=== PATIENT | male | born 1970 | race Two or more races ===

== ENCOUNTER 2020-09-24 11:20 | Inpatient (IN) | payer MEDICAID, SELFPAY ==
[~2020-09-24] VITALS: Ht 175.3 cm; Wt 76.8 kg
[2020-09-24] MEDS ORDERED: methylPREDNISolone SOD SUCC 125 MG/2 ML VL IV ONE (11:45)
[2020-09-24 12:28] LABS: Basophils # (auto) 0 10 ^3/uL (0-0.2); Eosinophils # (auto) 0 10 ^3/uL (0-0.8); Hemoglobin 17.3 g/dL (13.5-17.5); Monocytes # (auto) 1.1 10 ^3/uL (0-1.3); Red Cell Distribution Width 15.9 % (11.8-14.3); White Blood Cell 16.6 10^3/uL (4.4-10.8)
[2020-09-24 12:29] LABS: Basophils % (auto) 0.2 % (0.0-2.0); Hematocrit 55.3 % (41.0-53.0); Lymphocytes # (auto) 0.5 10 ^3/uL (0.4-5.4); Lymphocytes % (auto) 2.9 % (10.0-50.0); Mean Corpuscular Hemoglobin 30.1 pg (28.0-32.0); Mean Corpuscular Hgb Conc. 31.2 g/dL (32.0-36.0); Mean Corpuscular Volume 96.4 fL (80.0-100.0); Monocytes % (auto) 6.4 % (0.0-12.0); Neutrophils % (auto) 90.5 % (37.0-80.0); Nucleated Red Blood Cells % 0.2 %; Platelet Count (auto) 251 10^3/uL (140-450); Red Blood Cells 5.74 10^6/uL (4.5-5.90)
[2020-09-24 12:44] LABS: Albumin 3.9 g/dL (3.4-5.0); Calcium 8.9 mg/dL (8.5-10.1); Potassium 3.9 mmol/L (3.5-5.1)
[2020-09-24] MEDS ORDERED: INSULIN LANTUS (GLARGINE) 1 /0.01ml (100units/ml) SC ONE (12:45)
[2020-09-24] MEDS ORDERED: InsuLIN R (HUMAN) 100 UNITS in SODIUM CHL 0.9% 99 ML IV SCH (12:45)
[2020-09-24] MEDS ORDERED: DEXTROSE (50%) 50ML SYRG IV PRN (12:45)
[2020-09-24 12:52] LABS: BUN/Creatinine Ratio 13.7; Bilirubin, Total 0.4 mg/dL (0.2-1.0); CRP High Sensitivity 4.8 mg/dL (< 0.3); Total Protein 8.5 g/dL (6.4-8.2)
[2020-09-24] MEDS ORDERED: SODIUM BICARBONATE 8.4 % INJ 50ML VIAL IV ONE ×2 (13:00)
[2020-09-24] MEDS ORDERED: SODIUM CHLORIDE 0.9% 1,000 ML IV ONE (13:00)
[2020-09-24] MEDS ORDERED: SODIUM BICARBONATE 50ML VIAL 50 ML in SOD CHL 0.45% 1,000 ML IV ONE (13:45)
[2020-09-24] MEDS: ACCU-CHEK COMFORT CURVE STRIP VI SCH ×7 (13:57→22:35)
[2020-09-24 14:11] LABS: Lactic Acid w/Reflex 5.6 mmol/L (0.4-2.0)
[2020-09-24] MEDS ORDERED: MORPHINE SULF INJ 2 MG/ML SYRINGE 1ML IV PRN (14:15)
[2020-09-24] MEDS ORDERED: ZINC SULFATE 220mg CAP or TAB PO ONE (14:15)
[2020-09-24] MEDS ORDERED: ASCORBIC ACID 500 MG TAB PO ONE (14:15)
[2020-09-24] MEDS ORDERED: NITROGLYCERIN 0.4 MG SL TAB SL PRN (14:15)
[2020-09-24 15:24] LABS: Urine Bacteria NONE SEEN /hpf (None Seen); Urine Blood 2+ /uL (Negative); Urine Hyaline Cast FEW /lpf (0 - 2); Urine Specific Gravity 1.024 (1.001-1.035); Urine WBC 2 /hpf (0 - 3)
[2020-09-24 16:05] LABS: Magnesium 2.8 mg/dL (1.6-2.6); Phosphorus 4.5 mg/dL (2.5-4.90)
[2020-09-24] MEDS: InsuLIN R (HUMAN) 100 UNITS in SODIUM CHL 0.9% 99 ML IV SCH ×4 (17:14→20:08)
[2020-09-24 21:44] LABS: Calcium 7.5 mg/dL (8.5-10.1); Potassium 3.7 mmol/L (3.5-5.1)
[2020-09-24 21:46] LABS: BUN/Creatinine Ratio 15.3
[2020-09-24] MEDS: BUDESONIDE (INHALATION) 180 MCG IH IN SCH (22:00)
[2020-09-24] MEDS: DOXYCYCLINE 100MG/250ML 250 ML IV SCH (22:30)
[2020-09-24] MEDS: ENOXAPARIN SOD 40 MG/0.4 ML SYRINGE SC SCH (22:30)
[2020-09-24] MEDS: ALBUTEROL SULF HFA 90MCG INH 200DOSE IN PRN (23:19)
[2020-09-25] MEDS: ACCU-CHEK COMFORT CURVE STRIP VI SCH ×9 (00:10→20:00)
[2020-09-25] MEDS ORDERED: SODIUM BICARBONATE 50ML VIAL 100 ML in SOD CHL 0.45% 1,000 ML IV ONE (00:45)
[2020-09-25] MEDS ORDERED: SODIUM BICARBONATE 8.4 % INJ 50ML VIAL IV ONE (00:45)
[2020-09-25] MEDS ORDERED: SODIUM BICARBONATE 8.4% INJ 50ML SYRINGE ONE (00:55)
[2020-09-25] MEDS: D5W 5% 1,000 ML IV SCH (01:00)
[2020-09-25 06:45] LABS: Basophils # (auto) 0 10 ^3/uL (0-0.2); Basophils % (auto) 0.1 % (0.0-2.0); Eosinophils # (auto) 0 10 ^3/uL (0-0.8); Hematocrit 45.8 % (41.0-53.0); Hemoglobin 15.3 g/dL (13.5-17.5); Lymphocytes # (auto) 0.3 10 ^3/uL (0.4-5.4); Lymphocytes % (auto) 3.2 % (10.0-50.0); Mean Corpuscular Hemoglobin 29.9 pg (28.0-32.0); Mean Corpuscular Hgb Conc. 33.4 g/dL (32.0-36.0); Mean Corpuscular Volume 89.7 fL (80.0-100.0); Monocytes # (auto) 0.7 10 ^3/uL (0-1.3); Monocytes % (auto) 7.2 % (0.0-12.0); Neutrophils # (auto) 8.8 10 ^3/uL (1.6-8.6); Neutrophils % (auto) 89.5 % (37.0-80.0); Nucleated Red Blood Cells % 0.9 %; Platelet Count (auto) 161 10^3/uL (140-450); Red Cell Distribution Width 15.1 % (11.8-14.3); White Blood Cell 9.9 10^3/uL (4.4-10.8)
[2020-09-25] MEDS: ALBUTEROL SULF HFA 90MCG INH 200DOSE IN PRN (06:47)
[2020-09-25] MEDS: BUDESONIDE (INHALATION) 180 MCG IH IN SCH ×2 (06:47→22:00)
[2020-09-25 07:05] LABS: Calcium 8.4 mg/dL (8.5-10.1); Magnesium 2.5 mg/dL (1.6-2.6)
[2020-09-25 07:11] LABS: Bilirubin, Total 0.3 mg/dL (0.2-1.0); Total Protein 6.5 g/dL (6.4-8.2)
[2020-09-25 07:16] LABS: Potassium 2.9 mmol/L (3.5-5.1)
[2020-09-25 07:17] LABS: Phosphorus 0.5 mg/dL (2.5-4.90)
[2020-09-25] MEDS ORDERED: SOD CHL 0.45% 1,000 ML IV SCH (08:45)
[2020-09-25] MEDS ORDERED: DEXTROSE (50%) 50ML SYRG IV PRN (08:45)
[2020-09-25] MEDS ORDERED: POTASSIUM EFFERVESENT TAB 25 MEQ PO ONE ×2 (08:45→19:00)
[2020-09-25] MEDS: cefTRIAXone 1GM/50ML D5W 50 ML IV SCH (09:29)
[2020-09-25] MEDS: DOXYCYCLINE 100MG/250ML 250 ML IV SCH ×2 (09:29→22:00)
[2020-09-25] MEDS: ZINC SULFATE 220mg CAP or TAB PO SCH (09:30)
[2020-09-25] MEDS: ENOXAPARIN SOD 40 MG/0.4 ML SYRINGE SC SCH ×2 (09:31→21:31)
[2020-09-25] MEDS: INSULIN LANTUS (GLARGINE) 1 /0.01ml (100units/ml) SC SCH (09:57)
[2020-09-25] MEDS ORDERED: POTASSIUM PHOSPHATE 22 MEQ in SODIUM CHL 0.9% 100 ML IV ONE (11:15)
[2020-09-25] MEDS: InsuLIN REG 1unit/0.01ml Soln (100units/ml) SC SCH ×3 (12:21→21:30)
[2020-09-25 15:18] LABS: BUN/Creatinine Ratio 15.7
[2020-09-25 15:54] LABS: Calcium 5.7 mg/dL (8.5-10.1); Potassium 2.8 mmol/L (3.5-5.1)
[2020-09-25] MEDS ORDERED: CALCIUM GLUC 4.65meq/50ml D5AE 50 ML IV ONE (19:00)
[2020-09-25] MEDS: ACETAMINOPHEN 500 MG TAB PO PRN ×2 (20:20→21:36)
[2020-09-26] MEDS: InsuLIN REG 1unit/0.01ml Soln (100units/ml) SC SCH ×7 (04:00→23:56)
[2020-09-26] MEDS: ACCU-CHEK COMFORT CURVE STRIP VI SCH ×7 (04:00→23:56)
[2020-09-26] MEDS: D5W 5% 1,000 ML IV SCH ×2 (05:00→18:38)
[2020-09-26 05:53] LABS: Basophils # (auto) 0 10 ^3/uL (0-0.2); Basophils % (auto) 0.2 % (0.0-2.0); Eosinophils # (auto) 0 10 ^3/uL (0-0.8); Hematocrit 43.3 % (41.0-53.0); Hemoglobin 14.7 g/dL (13.5-17.5); Lymphocytes # (auto) 0.4 10 ^3/uL (0.4-5.4); Lymphocytes % (auto) 4.9 % (10.0-50.0); Mean Corpuscular Hemoglobin 29.9 pg (28.0-32.0); Mean Corpuscular Hgb Conc. 33.9 g/dL (32.0-36.0); Mean Corpuscular Volume 88.2 fL (80.0-100.0); Monocytes # (auto) 0.4 10 ^3/uL (0-1.3); Monocytes % (auto) 5.3 % (0.0-12.0); Neutrophils # (auto) 7.5 10 ^3/uL (1.6-8.6); Neutrophils % (auto) 89.6 % (37.0-80.0); Platelet Count (auto) 131 10^3/uL (140-450); Red Cell Distribution Width 15.1 % (11.8-14.3); White Blood Cell 8.3 10^3/uL (4.4-10.8)
[2020-09-26 06:30] LABS: Albumin 2.6 g/dL (3.4-5.0); BUN/Creatinine Ratio 12.8; Bilirubin, Total 0.5 mg/dL (0.2-1.0); CRP High Sensitivity 9.15 mg/dL (< 0.3); Calcium 8.5 mg/dL (8.5-10.1); Total Protein 6.3 g/dL (6.4-8.2)
[2020-09-26 06:37] LABS: Potassium 2.7 mmol/L (3.5-5.1)
[2020-09-26] MEDS: BUDESONIDE (INHALATION) 180 MCG IH IN SCH ×2 (06:45→20:01)
[2020-09-26] MEDS: ALBUTEROL SULF HFA 90MCG INH 200DOSE IN PRN ×2 (06:47→20:01)
[2020-09-26] MEDS ORDERED: POTASSIUM CHLORIDE 60 MEQ, LIDOCAINE 1% (LOCAL ANESTH.) 6 ML in SODIUM CHL 0.9% 500 ML IV ONE (08:45)
[2020-09-26] MEDS: cefTRIAXone 1GM/50ML D5W 50 ML IV SCH (08:58)
[2020-09-26] MEDS: ACETAMINOPHEN 500 MG TAB PO PRN (09:20)
[2020-09-26] MEDS: ZINC SULFATE 220mg CAP or TAB PO SCH (10:00)
[2020-09-26] MEDS: INSULIN LANTUS (GLARGINE) 1 /0.01ml (100units/ml) SC SCH (10:20)
[2020-09-26] MEDS: ASCORBIC ACID 1,000 MG TAB PO SCH (10:55)
[2020-09-26] MEDS: DOXYCYCLINE 100MG/250ML 250 ML IV SCH ×2 (10:55→22:24)
[2020-09-26] MEDS: DexAMETHasone SOD PHOS 10MG/1ML VIAL INJ IV SCH (10:55)
[2020-09-26] MEDS: CHOLECALCIFEROL (VITD3) 2,000 UNIT CAP/TAB PO SCH (10:56)
[2020-09-26] MEDS: ENOXAPARIN SOD 40 MG/0.4 ML SYRINGE SC SCH ×2 (10:56→22:25)
[2020-09-26 22:00] VITALS: BP 122/84
[2020-09-27] MEDS: D5W 5% 1,000 ML IV SCH ×3 (01:00→21:00)
[2020-09-27] MEDS: ACCU-CHEK COMFORT CURVE STRIP VI SCH ×5 (03:24→20:24)
[2020-09-27] MEDS: InsuLIN REG 1unit/0.01ml Soln (100units/ml) SC SCH ×5 (03:24→20:30)
[2020-09-27 05:00] VITALS: BP 121/75
[2020-09-27 08:00] VITALS: BP 115/78
[2020-09-27 09:00] VITALS: BP 115/78
[2020-09-27] MEDS: cefTRIAXone 1GM/50ML D5W 50 ML IV SCH (09:25)
[2020-09-27] MEDS: DexAMETHasone SOD PHOS 10MG/1ML VIAL INJ IV SCH (09:26)
[2020-09-27] MEDS: DOXYCYCLINE 100MG/250ML 250 ML IV SCH ×2 (09:26→21:59)
[2020-09-27] MEDS: ZINC SULFATE 220mg CAP or TAB PO SCH (09:27)
[2020-09-27] MEDS: ASCORBIC ACID 1,000 MG TAB PO SCH (09:27)
[2020-09-27] MEDS: INSULIN LANTUS (GLARGINE) 1 /0.01ml (100units/ml) SC SCH (09:28)
[2020-09-27] MEDS: CHOLECALCIFEROL (VITD3) 2,000 UNIT CAP/TAB PO SCH (09:28)
[2020-09-27] MEDS: ENOXAPARIN SOD 40 MG/0.4 ML SYRINGE SC SCH ×2 (09:29→21:59)
[2020-09-27] MEDS: BUDESONIDE (INHALATION) 180 MCG IH IN SCH (09:38)
[2020-09-27] MEDS: ALBUTEROL SULF HFA 90MCG INH 200DOSE IN PRN (09:38)
[2020-09-27 13:00] VITALS: BP 110/73
[2020-09-27 16:40] VITALS: BP 120/76
[2020-09-27 20:17] VITALS: BP 136/72
[2020-09-28] MEDS: ACCU-CHEK COMFORT CURVE STRIP VI SCH ×6 (00:18→20:28)
[2020-09-28] MEDS: InsuLIN REG 1unit/0.01ml Soln (100units/ml) SC SCH ×6 (00:20→20:29)
[2020-09-28] MEDS: cefTRIAXone 1GM/50ML D5W 50 ML IV SCH (08:51)
[2020-09-28] MEDS: D5W 5% 1,000 ML IV SCH ×2 (09:19→17:05)
[2020-09-28] MEDS: DexAMETHasone SOD PHOS 10MG/1ML VIAL INJ IV SCH (09:30)
[2020-09-28] MEDS: DOXYCYCLINE 100MG/250ML 250 ML IV SCH ×2 (09:32→20:40)
[2020-09-28] MEDS: ZINC SULFATE 220mg CAP or TAB PO SCH (09:33)
[2020-09-28] MEDS: CHOLECALCIFEROL (VITD3) 2,000 UNIT CAP/TAB PO SCH (09:33)
[2020-09-28] MEDS: ASCORBIC ACID 1,000 MG TAB PO SCH (09:33)
[2020-09-28] MEDS: ENOXAPARIN SOD 40 MG/0.4 ML SYRINGE SC SCH ×2 (09:35→21:53)
[2020-09-28] MEDS: INSULIN LANTUS (GLARGINE) 1 /0.01ml (100units/ml) SC SCH (09:35)
[2020-09-28] MEDS: BUDESONIDE (INHALATION) 180 MCG IH IN SCH ×2 (10:00→20:00)
[2020-09-28 11:42] LABS: Albumin 2.5 g/dL (3.4-5.0); Calcium 8.3 mg/dL (8.5-10.1); Magnesium 2.2 mg/dL (1.6-2.6)
[2020-09-28 11:46] LABS: BUN/Creatinine Ratio 22.8; Bilirubin, Total 0.5 mg/dL (0.2-1.0); Phosphorus 2.4 mg/dL (2.5-4.90); Total Protein 6.2 g/dL (6.4-8.2)
[2020-09-28 11:57] LABS: Potassium 2.8 mmol/L (3.5-5.1)
[2020-09-28] MEDS ORDERED: POTASSIUM CHL 20 Meq TABLET PO ONE (12:15)
[2020-09-28 20:00] VITALS: BP 89/52
[2020-09-28] MEDS ORDERED: SODIUM PHOSPHATES 20 MEQ in SODIUM CHL 0.9% 100 ML IV ONE (21:00)
[2020-09-28 22:00] VITALS: BP 89/52
[2020-09-29] VITALS (11 sets, daily range): BP systolic 78–93; BP diastolic 50–65
[2020-09-29] MEDS: ERGOCALCIFEROL 50,000 UNIT(1.25MG) CAP PO SCH (00:45)
[2020-09-29] MEDS: ACCU-CHEK COMFORT CURVE STRIP VI SCH ×6 (01:27→20:20)
[2020-09-29] MEDS: InsuLIN REG 1unit/0.01ml Soln (100units/ml) SC SCH ×6 (01:32→20:21)
[2020-09-29] MEDS: D5W 5% 1,000 ML IV SCH (03:02)
[2020-09-29] MEDS: cefTRIAXone 1GM/50ML D5W 50 ML IV SCH (08:26)
[2020-09-29] MEDS: DOXYCYCLINE 100MG/250ML 250 ML IV SCH (09:31)
[2020-09-29] MEDS: ASCORBIC ACID 1,000 MG TAB PO SCH (09:32)
[2020-09-29] MEDS: ZINC SULFATE 220mg CAP or TAB PO SCH (09:32)
[2020-09-29] MEDS: CHOLECALCIFEROL (VITD3) 2,000 UNIT CAP/TAB PO SCH (09:32)
[2020-09-29] MEDS: INSULIN LANTUS (GLARGINE) 1 /0.01ml (100units/ml) SC SCH (09:33)
[2020-09-29] MEDS: ENOXAPARIN SOD 40 MG/0.4 ML SYRINGE SC SCH ×2 (09:34→21:33)
[2020-09-29] MEDS: BUDESONIDE (INHALATION) 180 MCG IH IN SCH ×2 (10:00→21:33)
[2020-09-29 10:08] LABS: Potassium 3.1 mmol/L (3.5-5.1)
[2020-09-29 10:21] LABS: Calcium 8.3 mg/dL (8.5-10.1)
[2020-09-29] MEDS ORDERED: POTASSIUM CHL 20 Meq TABLET PO ONE (11:30)
[2020-09-29] MEDS ORDERED: SODIUM CHLORIDE 0.9% 1,000 ML IV ONE (12:45)
[2020-09-29] MEDS: SODIUM CHLORIDE 0.9% 1,000 ML IV SCH (13:04)
[2020-09-29] MEDS: FOLIC ACID 1 MG, MULTIPLE VITAMIN 10 ML, MAGNESIUM SULF SDV 50% 8 MEQ, THIAMINE INJ 100... INJ SCH ×5 (18:20)
[2020-09-29] MEDS: ALBUTEROL SULF HFA 90MCG INH 200DOSE IN PRN (21:33)
[2020-09-30] VITALS (7 sets, daily range): BP systolic 83–94; BP diastolic 50–62
[2020-09-30] MEDS: ACCU-CHEK COMFORT CURVE STRIP VI SCH ×6 (00:03→19:56)
[2020-09-30] MEDS: SODIUM CHLORIDE 0.9% 1,000 ML IV SCH ×2 (01:28→15:25)
[2020-09-30] MEDS: InsuLIN REG 1unit/0.01ml Soln (100units/ml) SC SCH ×6 (04:00→20:06)
[2020-09-30] MEDS: cefTRIAXone 1GM/50ML D5W 50 ML IV SCH (08:24)
[2020-09-30] MEDS: ZINC SULFATE 220mg CAP or TAB PO SCH (09:56)
[2020-09-30] MEDS: CHOLECALCIFEROL (VITD3) 2,000 UNIT CAP/TAB PO SCH (09:57)
[2020-09-30] MEDS: ASCORBIC ACID 1,000 MG TAB PO SCH (09:57)
[2020-09-30] MEDS: INSULIN LANTUS (GLARGINE) 1 /0.01ml (100units/ml) SC SCH (09:59)
[2020-09-30] MEDS: ENOXAPARIN SOD 40 MG/0.4 ML SYRINGE SC SCH ×2 (09:59→21:20)
[2020-09-30] MEDS: FOLIC ACID 1 MG, MULTIPLE VITAMIN 10 ML, MAGNESIUM SULF SDV 50% 8 MEQ, THIAMINE INJ 100... INJ SCH ×5 (12:38)
[2020-09-30] MEDS: BUDESONIDE (INHALATION) 180 MCG IH IN SCH ×2 (14:32→20:25)
[2020-09-30 18:24] LABS: Albumin 2.1 g/dL (3.4-5.0); Calcium 7.7 mg/dL (8.5-10.1); Magnesium 2.4 mg/dL (1.6-2.6)
[2020-09-30 18:29] LABS: BUN/Creatinine Ratio 21.9; Bilirubin, Total 0.3 mg/dL (0.2-1.0); Phosphorus 3.4 mg/dL (2.5-4.90); Potassium 3.3 mmol/L (3.5-5.1); Total Protein 5.2 g/dL (6.4-8.2)
[2020-09-30] MEDS: ALBUTEROL SULF HFA 90MCG INH 200DOSE IN PRN (20:26)
[2020-10-01] MEDS: ACCU-CHEK COMFORT CURVE STRIP VI SCH ×6 (00:15→20:03)
[2020-10-01] MEDS: InsuLIN REG 1unit/0.01ml Soln (100units/ml) SC SCH ×6 (04:00→20:03)
[2020-10-01] MEDS: ACETAMINOPHEN 500 MG TAB PO PRN (04:15)
[2020-10-01] MEDS: SODIUM CHLORIDE 0.9% 1,000 ML IV SCH (04:15)
[2020-10-01 05:00] VITALS: BP 84/51
[2020-10-01 07:36] LABS: Calcium 7.8 mg/dL (8.5-10.1); Magnesium 2.4 mg/dL (1.6-2.6); Phosphorus 3.2 mg/dL (2.5-4.90); Potassium 3.3 mmol/L (3.5-5.1)
[2020-10-01 08:00] VITALS: BP 79/42
[2020-10-01] MEDS: cefTRIAXone 1GM/50ML D5W 50 ML IV SCH (08:26)
[2020-10-01] MEDS ORDERED: POTASSIUM CHL 20 Meq TABLET PO ONE (09:00)
[2020-10-01] MEDS: BUDESONIDE (INHALATION) 180 MCG IH IN SCH ×2 (10:00→22:00)
[2020-10-01] MEDS: CHOLECALCIFEROL (VITD3) 2,000 UNIT CAP/TAB PO SCH (10:00)
[2020-10-01] MEDS: INSULIN LANTUS (GLARGINE) 1 /0.01ml (100units/ml) SC SCH (10:00)
[2020-10-01] MEDS: ASCORBIC ACID 1,000 MG TAB PO SCH (10:00)
[2020-10-01] MEDS: ZINC SULFATE 220mg CAP or TAB PO SCH (10:00)
[2020-10-01] MEDS: ENOXAPARIN SOD 40 MG/0.4 ML SYRINGE SC SCH ×2 (10:00→22:10)
[2020-10-01] MEDS: FOLIC ACID 1 MG, MULTIPLE VITAMIN 10 ML, MAGNESIUM SULF SDV 50% 8 MEQ, THIAMINE INJ 100... INJ SCH ×5 (12:00)
[2020-10-01 12:06] LABS: Folate (Folic Acid) 5.84 ng/mL (5.38-24)
[2020-10-01] MEDS ORDERED: AZITHROMYCIN 250 MG TAB PO ONE (21:15)
[2020-10-01] MEDS ORDERED: REMDESIVIR PER PHARMACY 0 ML IV SCH (21:15)
[2020-10-01] MEDS ORDERED: CYANOCOBALAMIN (B-12) 1000 MCG/1 ML VIAL IM ONE (21:30)
[2020-10-01 21:37] VITALS: BP 93/63
[2020-10-01] MEDS ORDERED: DexAMETHasone 4 MG TAB PO SCH (22:00)
[2020-10-01] MEDS ORDERED: REMDESIVIR 200 MG in NS 210ml LOADING DOSE ADULT IV ONE (22:00)
[2020-10-01] MEDS: FAMOTIDINE 20 MG TAB PO SCH (22:10)
[2020-10-01] MEDS: ALBUTEROL SULF HFA 90MCG INH 200DOSE IN PRN (23:38)
[2020-10-02] VITALS (7 sets, daily range): BP systolic 90–105; BP diastolic 53–63
[2020-10-02] MEDS: ACCU-CHEK COMFORT CURVE STRIP VI SCH ×6 (00:12→20:13)
[2020-10-02] MEDS: InsuLIN REG 1unit/0.01ml Soln (100units/ml) SC SCH ×6 (00:15→20:54)
[2020-10-02] MEDS: cefTRIAXone 1GM/50ML D5W 50 ML IV SCH (08:15)
[2020-10-02 08:56] LABS: Basophils # (auto) 0 10 ^3/uL (0-0.2); Basophils % (auto) 0.2 % (0.0-2.0); Eosinophils # (auto) 0.1 10 ^3/uL (0-0.8); Eosinophils % (auto) 1.9 % (0.0-7.0); Hematocrit 37.2 % (41.0-53.0); Hemoglobin 12.6 g/dL (13.5-17.5); Lymphocytes % (auto) 13.6 % (10.0-50.0); Mean Corpuscular Hemoglobin 29.8 pg (28.0-32.0); Mean Corpuscular Hgb Conc. 33.8 g/dL (32.0-36.0); Mean Corpuscular Volume 88.2 fL (80.0-100.0); Monocytes # (auto) 0.8 10 ^3/uL (0-1.3); Monocytes % (auto) 10.3 % (0.0-12.0); Neutrophils # (auto) 5.6 10 ^3/uL (1.6-8.6); Nucleated Red Blood Cells % 0.1 %; Platelet Count (auto) 194 10^3/uL (140-450); Red Blood Cells 4.22 10^6/uL (4.5-5.90); Red Cell Distribution Width 13.9 % (11.8-14.3); White Blood Cell 7.6 10^3/uL (4.4-10.8)
[2020-10-02 09:29] LABS: Potassium 3.6 mmol/L (3.5-5.1)
[2020-10-02 09:44] LABS: BUN/Creatinine Ratio 11.3; Bilirubin, Total 0.3 mg/dL (0.2-1.0); CRP High Sensitivity 4.19 mg/dL (< 0.3); Calcium 7.9 mg/dL (8.5-10.1); Magnesium 2.3 mg/dL (1.6-2.6); Phosphorus 2.9 mg/dL (2.5-4.90); Total Protein 5.4 g/dL (6.4-8.2)
[2020-10-02] MEDS: BUDESONIDE (INHALATION) 180 MCG IH IN SCH ×2 (10:00→20:59)
[2020-10-02] MEDS: THIAMINE HCL 100 MG TAB PO SCH (10:07)
[2020-10-02] MEDS: ZINC SULFATE 220mg CAP or TAB PO SCH (10:10)
[2020-10-02] MEDS: DexAMETHasone 4 MG TAB PO SCH (10:17)
[2020-10-02] MEDS: CHOLECALCIFEROL (VITD3) 2,000 UNIT CAP/TAB PO SCH (10:25)
[2020-10-02] MEDS: ASCORBIC ACID 1,000 MG TAB PO SCH (10:25)
[2020-10-02] MEDS: INSULIN LANTUS (GLARGINE) 1 /0.01ml (100units/ml) SC SCH (10:27)
[2020-10-02] MEDS: ENOXAPARIN SOD 40 MG/0.4 ML SYRINGE SC SCH ×2 (10:28→20:55)
[2020-10-02] MEDS: ALBUTEROL SULF HFA 90MCG INH 200DOSE IN PRN ×2 (11:21→20:59)
[2020-10-02] MEDS: FOLIC ACID 1 MG, MULTIPLE VITAMIN 10 ML, MAGNESIUM SULF SDV 50% 8 MEQ, THIAMINE INJ 100... INJ SCH ×5 (12:15)
[2020-10-02] MEDS ORDERED: POTASSIUM CHL 20 Meq TABLET PO ONE (13:30)
[2020-10-02] MEDS: AZITHROMYCIN 250 MG TAB PO SCH (20:14)
[2020-10-02] MEDS: REMDESIVIR 100 MG in SODIUM CHL 0.9% 250 ML IV SCH (20:14)
[2020-10-02] MEDS: FAMOTIDINE 20 MG TAB PO SCH (20:55)
[2020-10-03] MEDS: ACCU-CHEK COMFORT CURVE STRIP VI SCH ×6 (00:44→20:13)
[2020-10-03] MEDS: InsuLIN REG 1unit/0.01ml Soln (100units/ml) SC SCH ×6 (00:47→20:13)
[2020-10-03 05:00] VITALS: BP 94/61
[2020-10-03] MEDS: BUDESONIDE (INHALATION) 180 MCG IH IN SCH ×2 (07:19→21:52)
[2020-10-03] MEDS: ALBUTEROL SULF HFA 90MCG INH 200DOSE IN PRN ×2 (07:19→21:52)
[2020-10-03 08:00] VITALS: BP 108/57
[2020-10-03] MEDS: cefTRIAXone 1GM/50ML D5W 50 ML IV SCH (08:41)
[2020-10-03 09:00] VITALS: BP 86/50
[2020-10-03] MEDS: ZINC SULFATE 220mg CAP or TAB PO SCH (09:47)
[2020-10-03] MEDS: DexAMETHasone 4 MG TAB PO SCH (09:47)
[2020-10-03] MEDS: ASCORBIC ACID 1,000 MG TAB PO SCH (09:47)
[2020-10-03] MEDS: THIAMINE HCL 100 MG TAB PO SCH (09:47)
[2020-10-03] MEDS: CHOLECALCIFEROL (VITD3) 2,000 UNIT CAP/TAB PO SCH (09:48)
[2020-10-03] MEDS: ENOXAPARIN SOD 40 MG/0.4 ML SYRINGE SC SCH ×2 (09:50→21:43)
[2020-10-03] MEDS: INSULIN LANTUS (GLARGINE) 1 /0.01ml (100units/ml) SC SCH (09:50)
[2020-10-03] MEDS: FOLIC ACID 1 MG, MULTIPLE VITAMIN 10 ML, MAGNESIUM SULF SDV 50% 8 MEQ, THIAMINE INJ 100... INJ SCH ×5 (12:06)
[2020-10-03 13:00] VITALS: BP 97/61
[2020-10-03 17:00] VITALS: BP 105/73
[2020-10-03] MEDS: REMDESIVIR 100 MG in SODIUM CHL 0.9% 250 ML IV SCH (20:05)
[2020-10-03] MEDS: AZITHROMYCIN 250 MG TAB PO SCH (20:12)
[2020-10-03 21:00] VITALS: BP 91/56
[2020-10-03] MEDS: FAMOTIDINE 20 MG TAB PO SCH (21:42)
[2020-10-04] MEDS: ACCU-CHEK COMFORT CURVE STRIP VI SCH ×6 (04:06→20:09)
[2020-10-04] MEDS: InsuLIN REG 1unit/0.01ml Soln (100units/ml) SC SCH ×6 (04:07→20:16)
[2020-10-04 05:00] VITALS: BP 90/59
[2020-10-04 06:17] LABS: Potassium 3.4 mmol/L (3.5-5.1)
[2020-10-04 06:39] LABS: Albumin 2.1 g/dL (3.4-5.0); BUN/Creatinine Ratio 16.2; Bilirubin, Total 0.2 mg/dL (0.2-1.0); Calcium 8.1 mg/dL (8.5-10.1); Total Protein 5.3 g/dL (6.4-8.2)
[2020-10-04] MEDS: ALBUTEROL SULF HFA 90MCG INH 200DOSE IN PRN ×2 (07:36→21:54)
[2020-10-04] MEDS: BUDESONIDE (INHALATION) 180 MCG IH IN SCH ×2 (07:36→21:54)
[2020-10-04 09:00] VITALS: BP 90/51
[2020-10-04] MEDS: ZINC SULFATE 220mg CAP or TAB PO SCH (09:08)
[2020-10-04] MEDS: CHOLECALCIFEROL (VITD3) 2,000 UNIT CAP/TAB PO SCH (09:08)
[2020-10-04] MEDS: THIAMINE HCL 100 MG TAB PO SCH (09:08)
[2020-10-04] MEDS: cefTRIAXone 1GM/50ML D5W 50 ML IV SCH (09:08)
[2020-10-04] MEDS: DexAMETHasone 4 MG TAB PO SCH (09:08)
[2020-10-04] MEDS: ASCORBIC ACID 1,000 MG TAB PO SCH (09:09)
[2020-10-04] MEDS: ENOXAPARIN SOD 40 MG/0.4 ML SYRINGE SC SCH ×2 (09:09→22:03)
[2020-10-04] MEDS: INSULIN LANTUS (GLARGINE) 1 /0.01ml (100units/ml) SC SCH (11:37)
[2020-10-04 13:00] VITALS: BP 88/51
[2020-10-04] MEDS: FOLIC ACID 1 MG, MULTIPLE VITAMIN 10 ML, MAGNESIUM SULF SDV 50% 8 MEQ, THIAMINE INJ 100... INJ SCH ×5 (14:56)
[2020-10-04 16:36] VITALS: BP 90/60
[2020-10-04 20:00] VITALS: BP 89/56
[2020-10-04] MEDS: REMDESIVIR 100 MG in SODIUM CHL 0.9% 250 ML IV SCH (20:05)
[2020-10-04] MEDS: AZITHROMYCIN 250 MG TAB PO SCH (20:09)
[2020-10-04 22:00] VITALS: BP 89/50
[2020-10-04] MEDS ORDERED: POTASSIUM CHL 20 Meq TABLET PO ONE (22:00)
[2020-10-04] MEDS: FAMOTIDINE 20 MG TAB PO SCH (22:03)
[2020-10-05] MEDS: ACCU-CHEK COMFORT CURVE STRIP VI SCH ×6 (00:07→19:43)
[2020-10-05] MEDS: InsuLIN REG 1unit/0.01ml Soln (100units/ml) SC SCH ×6 (00:15→19:46)
[2020-10-05 05:00] VITALS: BP 88/58
[2020-10-05] MEDS: BUDESONIDE (INHALATION) 180 MCG IH IN SCH ×2 (07:07→19:50)
[2020-10-05] MEDS: ALBUTEROL SULF HFA 90MCG INH 200DOSE IN PRN (07:07)
[2020-10-05 07:27] LABS: Potassium 3.8 mmol/L (3.5-5.1)
[2020-10-05 07:38] LABS: Albumin 2.1 g/dL (3.4-5.0); BUN/Creatinine Ratio 18.7; Bilirubin, Total 0.3 mg/dL (0.2-1.0); Calcium 8.1 mg/dL (8.5-10.1); Total Protein 5.6 g/dL (6.4-8.2)
[2020-10-05 09:00] VITALS: BP 97/67
[2020-10-05] MEDS: THIAMINE HCL 100 MG TAB PO SCH (10:58)
[2020-10-05] MEDS: ASCORBIC ACID 1,000 MG TAB PO SCH (10:58)
[2020-10-05] MEDS: ZINC SULFATE 220mg CAP or TAB PO SCH (10:58)
[2020-10-05] MEDS: DexAMETHasone 4 MG TAB PO SCH (10:59)
[2020-10-05] MEDS: CHOLECALCIFEROL (VITD3) 2,000 UNIT CAP/TAB PO SCH (10:59)
[2020-10-05] MEDS: ENOXAPARIN SOD 40 MG/0.4 ML SYRINGE SC SCH ×2 (11:00→22:08)
[2020-10-05] MEDS: INSULIN LANTUS (GLARGINE) 1 /0.01ml (100units/ml) SC SCH (11:00)
[2020-10-05] MEDS: FOLIC ACID 1 MG, MULTIPLE VITAMIN 10 ML, MAGNESIUM SULF SDV 50% 8 MEQ, THIAMINE INJ 100... INJ SCH ×5 (12:00)
[2020-10-05 13:00] VITALS: BP 99/60
[2020-10-05 16:54] VITALS: BP 94/52
[2020-10-05] MEDS: AZITHROMYCIN 250 MG TAB PO SCH (19:43)
[2020-10-05] MEDS: REMDESIVIR 100 MG in SODIUM CHL 0.9% 250 ML IV SCH (19:44)
[2020-10-05 20:00] VITALS: BP 94/60
[2020-10-05] MEDS: ERGOCALCIFEROL 50,000 UNIT(1.25MG) CAP PO SCH (21:00)
[2020-10-05 22:00] VITALS: BP 100/55
[2020-10-05] MEDS: FAMOTIDINE 20 MG TAB PO SCH (22:08)
[2020-10-06] MEDS: ACCU-CHEK COMFORT CURVE STRIP VI SCH ×7 (00:05→23:44)
[2020-10-06] MEDS: InsuLIN REG 1unit/0.01ml Soln (100units/ml) SC SCH ×7 (00:10→23:46)
[2020-10-06] MEDS: ALBUTEROL SULF HFA 90MCG INH 200DOSE IN PRN ×3 (00:59→21:12)
[2020-10-06 05:00] VITALS: BP 96/57
[2020-10-06] MEDS: ACETAMINOPHEN 500 MG TAB PO PRN ×2 (05:51→11:04)
[2020-10-06] MEDS: BUDESONIDE (INHALATION) 180 MCG IH IN SCH ×2 (07:28→21:12)
[2020-10-06 09:00] VITALS: BP 86/49
[2020-10-06] MEDS: ZINC SULFATE 220mg CAP or TAB PO SCH (11:02)
[2020-10-06] MEDS: DexAMETHasone 4 MG TAB PO SCH (11:03)
[2020-10-06] MEDS: THIAMINE HCL 100 MG TAB PO SCH (11:03)
[2020-10-06] MEDS: CHOLECALCIFEROL (VITD3) 2,000 UNIT CAP/TAB PO SCH (11:03)
[2020-10-06] MEDS: ASCORBIC ACID 1,000 MG TAB PO SCH (11:03)
[2020-10-06] MEDS: ENOXAPARIN SOD 40 MG/0.4 ML SYRINGE SC SCH ×2 (11:04→22:25)
[2020-10-06] MEDS: INSULIN LANTUS (GLARGINE) 1 /0.01ml (100units/ml) SC SCH (11:46)
[2020-10-06 12:37] VITALS: BP 88/53
[2020-10-06] MEDS: FOLIC ACID 1 MG, MULTIPLE VITAMIN 10 ML, MAGNESIUM SULF SDV 50% 8 MEQ, THIAMINE INJ 100... INJ SCH ×5 (13:15)
[2020-10-06 17:00] VITALS: BP 90/62
[2020-10-06] MEDS: FAMOTIDINE 20 MG TAB PO SCH (22:24)
[2020-10-06 23:38] VITALS: BP 111/73
[2020-10-07] MEDS: ACCU-CHEK COMFORT CURVE STRIP VI SCH ×6 (04:21→23:31)
[2020-10-07] MEDS: InsuLIN REG 1unit/0.01ml Soln (100units/ml) SC SCH ×6 (04:23→23:30)
[2020-10-07 05:39] VITALS: BP 95/56
[2020-10-07 08:18] VITALS: BP 99/59
[2020-10-07] MEDS: BUDESONIDE (INHALATION) 180 MCG IH IN SCH ×2 (08:49→21:20)
[2020-10-07] MEDS: ALBUTEROL SULF HFA 90MCG INH 200DOSE IN PRN ×2 (08:49→21:20)
[2020-10-07] MEDS: THIAMINE HCL 100 MG TAB PO SCH (08:52)
[2020-10-07] MEDS: CHOLECALCIFEROL (VITD3) 2,000 UNIT CAP/TAB PO SCH (08:52)
[2020-10-07] MEDS: DexAMETHasone 4 MG TAB PO SCH (08:52)
[2020-10-07] MEDS: ZINC SULFATE 220mg CAP or TAB PO SCH (08:52)
[2020-10-07] MEDS: ASCORBIC ACID 1,000 MG TAB PO SCH (08:52)
[2020-10-07] MEDS: ENOXAPARIN SOD 40 MG/0.4 ML SYRINGE SC SCH ×2 (08:53→22:01)
[2020-10-07] MEDS: INSULIN LANTUS (GLARGINE) 1 /0.01ml (100units/ml) SC SCH (08:55)
[2020-10-07 13:04] VITALS: BP 103/60
[2020-10-07] MEDS: FOLIC ACID 1 MG, MULTIPLE VITAMIN 10 ML, MAGNESIUM SULF SDV 50% 8 MEQ, THIAMINE INJ 100... INJ SCH ×5 (14:14)
[2020-10-07 16:46] VITALS: BP 102/62
[2020-10-07 22:00] VITALS: BP 98/58
[2020-10-07] MEDS: FAMOTIDINE 20 MG TAB PO SCH (22:00)
[2020-10-08] MEDS: ACCU-CHEK COMFORT CURVE STRIP VI SCH ×5 (04:00→19:47)
[2020-10-08] MEDS: InsuLIN REG 1unit/0.01ml Soln (100units/ml) SC SCH ×5 (04:00→19:50)
[2020-10-08 05:00] VITALS: BP 95/56
[2020-10-08] MEDS: ALBUTEROL SULF HFA 90MCG INH 200DOSE IN PRN ×2 (06:43→21:40)
[2020-10-08] MEDS: BUDESONIDE (INHALATION) 180 MCG IH IN SCH ×2 (06:44→21:40)
[2020-10-08 07:16] LABS: Basophils # (auto) 0 10 ^3/uL (0-0.2); Basophils % (auto) 0.3 % (0.0-2.0); Eosinophils # (auto) 0.1 10 ^3/uL (0-0.8); Eosinophils % (auto) 0.7 % (0.0-7.0); Hemoglobin 11.9 g/dL (13.5-17.5); Lymphocytes # (auto) 1.6 10 ^3/uL (0.4-5.4); Lymphocytes % (auto) 18.5 % (10.0-50.0); Mean Corpuscular Hemoglobin 30.2 pg (28.0-32.0); Mean Corpuscular Volume 88.8 fL (80.0-100.0); Monocytes # (auto) 0.4 10 ^3/uL (0-1.3); Monocytes % (auto) 4.6 % (0.0-12.0); Neutrophils # (auto) 6.7 10 ^3/uL (1.6-8.6); Neutrophils % (auto) 75.9 % (37.0-80.0); Nucleated Red Blood Cells % 0.1 %; Platelet Count (auto) 254 10^3/uL (140-450); Red Blood Cells 3.94 10^6/uL (4.5-5.90); White Blood Cell 8.8 10^3/uL (4.4-10.8)
[2020-10-08 07:38] LABS: Potassium 3.5 mmol/L (3.5-5.1)
[2020-10-08 08:00] LABS: Albumin 2.3 g/dL (3.4-5.0); BUN/Creatinine Ratio 23.4; Bilirubin, Total 0.3 mg/dL (0.2-1.0); Calcium 8.2 mg/dL (8.5-10.1); Magnesium 2.4 mg/dL (1.6-2.6); Total Protein 5.9 g/dL (6.4-8.2)
[2020-10-08 08:28] VITALS: BP 88/52
[2020-10-08] MEDS: THIAMINE HCL 100 MG TAB PO SCH (09:43)
[2020-10-08] MEDS: ZINC SULFATE 220mg CAP or TAB PO SCH (09:43)
[2020-10-08] MEDS: ASCORBIC ACID 1,000 MG TAB PO SCH (09:43)
[2020-10-08] MEDS: DexAMETHasone 4 MG TAB PO SCH (09:43)
[2020-10-08] MEDS: ENOXAPARIN SOD 40 MG/0.4 ML SYRINGE SC SCH ×2 (09:44→21:41)
[2020-10-08] MEDS: CHOLECALCIFEROL (VITD3) 2,000 UNIT CAP/TAB PO SCH (09:44)
[2020-10-08] MEDS: INSULIN LANTUS (GLARGINE) 1 /0.01ml (100units/ml) SC SCH (09:45)
[2020-10-08] MEDS ORDERED: MIDODRINE HCL 10 MG TAB PO ONE (11:30)
[2020-10-08] MEDS: FOLIC ACID 1 MG, MULTIPLE VITAMIN 10 ML, MAGNESIUM SULF SDV 50% 8 MEQ, THIAMINE INJ 100... INJ SCH ×5 (12:30)
[2020-10-08 13:00] VITALS: BP 84/55
[2020-10-08 16:47] VITALS: BP 88/53
[2020-10-08] MEDS: SODIUM CHLORIDE 0.9% 1,000 ML IV SCH (17:41)
[2020-10-08] MEDS: ALBUMIN 25% 100 ML IV SCH ×2 (18:42→20:17)
[2020-10-08] MEDS: FAMOTIDINE 20 MG TAB PO SCH (21:40)
[2020-10-08] MEDS: MIDODRINE HCL 10 MG TAB PO SCH (21:41)
[2020-10-08 22:00] VITALS: BP 94/57
[2020-10-09] MEDS: ACCU-CHEK COMFORT CURVE STRIP VI SCH ×5 (00:15→16:00)
[2020-10-09] MEDS: InsuLIN REG 1unit/0.01ml Soln (100units/ml) SC SCH ×5 (04:00→16:00)
[2020-10-09] MEDS: SODIUM CHLORIDE 0.9% 1,000 ML IV SCH (04:44)
[2020-10-09 05:00] VITALS: BP 98/61
[2020-10-09 08:30] VITALS: BP 92/56
[2020-10-09] MEDS: BUDESONIDE (INHALATION) 180 MCG IH IN SCH (10:00)
[2020-10-09] MEDS: INSULIN LANTUS (GLARGINE) 1 /0.01ml (100units/ml) SC SCH (10:00)
[2020-10-09] MEDS: THIAMINE HCL 100 MG TAB PO SCH (10:17)
[2020-10-09] MEDS: ASCORBIC ACID 1,000 MG TAB PO SCH (10:17)
[2020-10-09] MEDS: CHOLECALCIFEROL (VITD3) 2,000 UNIT CAP/TAB PO SCH (10:17)
[2020-10-09] MEDS: MIDODRINE HCL 10 MG TAB PO SCH (10:18)
[2020-10-09] MEDS: ZINC SULFATE 220mg CAP or TAB PO SCH (10:18)
[2020-10-09] MEDS: DexAMETHasone 4 MG TAB PO SCH (10:18)
[2020-10-09] MEDS: ENOXAPARIN SOD 40 MG/0.4 ML SYRINGE SC SCH (10:18)
[2020-10-09] MEDS: FOLIC ACID 1 MG, MULTIPLE VITAMIN 10 ML, MAGNESIUM SULF SDV 50% 8 MEQ, THIAMINE INJ 100... INJ SCH ×5 (12:00)
[2020-10-09 12:30] VITALS: BP 88/49
[2020-10-09 17:00] VITALS: BP 83/43
[2020-10-09 17:27] VITALS: BP 83/43
== END 2020-10-09 19:19 | disposition home or self-care (01) | DRG 720 ==
LOC: ER 11:20 → EDBD 11:20 → ICU CENTRL 11:21 → EDBD 11:21 → TELE 22:24 → TELE-EAST 09-26 14:39 → TELE-E-ADS 09-26 14:45 → TELE-EAST 09-27 10:14
PROVIDERS: ADMIT Nurse Practitioner Acute Care; ATTEND Internal Medicine
PROC: XW13325 Transfusion of Convalescent Plasma (Nonautologous) into Peripheral Vein, Percutaneous Approach, New Technology Group 5 (ICD-10-PCS; 2020-09-29)
PROC: XW033E5 Introduction of Remdesivir Anti-infective into Peripheral Vein, Percutaneous Approach, New Technology Group 5 (ICD-10-PCS; principal; 2020-10-01)
DX: A41.89 Other specified sepsis (principal); E11.10 Type 2 diabetes mellitus with ketoacidosis without coma; G93.41 Metabolic encephalopathy; J12.89 Other viral pneumonia; U07.1 COVID-19; D68.59 Other primary thrombophilia; E86.0 Dehydration; E87.6 Hypokalemia; Z79.899 Other long term (current) drug therapy; I95.9 Hypotension, unspecified; E87.8 Other disorders of electrolyte and fluid balance, not elsewhere classified
CPT/HCPCS: 36415; 36600; 71045; 80048; 80053; 80061; 81001; 82010; 82306; 82533; 82607; 82728; 82746; 82805; 82962; 83036; 83605; 83615; 83735; 84100; 84443; 85025; 85379; 86141; 86850; 86900; 86901; 87040; 87426; 93005; 93306; 94640; 97110; 97116; 97530; G0378; J0610; J0696; J1100; J1815; J2001; J3490; P9047

== ENCOUNTER 2021-08-10 21:26 | Inpatient (IN) | payer MEDICAID, SELFPAY ==
[~2021-08-10] VITALS: Ht 165.1 cm; Wt 92.0 kg
[2021-08-10 23:34] LABS: Basophils # (auto) 0 10 ^3/uL (0-0.2); Basophils % (auto) 0.4 % (0.0-2.0); Eosinophils # (auto) 0.2 10 ^3/uL (0-0.8); Eosinophils % (auto) 2.7 % (0.0-7.0); Hematocrit 44.6 % (41.0-53.0); Hemoglobin 15.7 g/dL (13.5-17.5); Lymphocytes # (auto) 2.6 10 ^3/uL (0.4-5.4); Lymphocytes % (auto) 35.8 % (10.0-50.0); Mean Corpuscular Hgb Conc. 35.1 g/dL (32.0-36.0); Mean Corpuscular Volume 85.3 fL (80.0-100.0); Monocytes # (auto) 0.6 10 ^3/uL (0-1.3); Monocytes % (auto) 8.1 % (0.0-12.0); Neutrophils # (auto) 3.8 10 ^3/uL (1.6-8.6); Nucleated Red Blood Cells % 0.1 %; Red Blood Cells 5.23 10^6/uL (4.5-5.90); Red Cell Distribution Width 14.1 % (11.8-14.3); White Blood Cell 7.2 10^3/uL (4.4-10.8)
[2021-08-10 23:55] LABS: Albumin 3.7 g/dL (3.4-5.0); BUN/Creatinine Ratio 17.7; Calcium 8.7 mg/dL (8.5-10.1); Potassium 3.7 mmol/L (3.5-5.1)
[2021-08-10 23:58] LABS: Bilirubin, Total 0.6 mg/dL (0.2-1.0); Total Protein 7.2 g/dL (6.4-8.2)
[2021-08-11] MEDS ORDERED: DEXTROSE (50%) 50ML SYRG IV PRN (02:00)
[2021-08-11] MEDS ORDERED: ONDANSETRON HCL 4 MG/2 ML VIAL IV PRN (03:45)
[2021-08-11] MEDS: SODIUM CHLORIDE 0.9% 1,000 ML IV SCH (03:45)
[2021-08-11] MEDS ORDERED: HYDROcodone-ACET 5/325MG TAB PO PRN (03:45)
[2021-08-11] MEDS ORDERED: ACETAMINOPHEN 325 MG TAB PO PRN (03:45)
[2021-08-11] MEDS: ACCU-CHEK COMFORT CURVE STRIP VI SCH ×6 (04:00→23:53)
[2021-08-11] MEDS ORDERED: NITROGLYCERIN 0.4 MG SL TAB SL PRN (04:00)
[2021-08-11] MEDS ORDERED: MORPHINE SULFATE INJECTION 2 MG/ML SYRG IV PRN (04:00)
[2021-08-11] MEDS: InsuLIN REG 1unit/0.01ml Soln (100units/ml) SC SCH ×5 (05:21→21:43)
[2021-08-11 06:21] LABS: Basophils # (auto) 0 10 ^3/uL (0-0.2); Basophils % (auto) 0.3 % (0.0-2.0); Eosinophils # (auto) 0.2 10 ^3/uL (0-0.8); Eosinophils % (auto) 2.9 % (0.0-7.0); Hematocrit 44.7 % (41.0-53.0); Lymphocytes # (auto) 1.9 10 ^3/uL (0.4-5.4); Lymphocytes % (auto) 31.9 % (10.0-50.0); Mean Corpuscular Hemoglobin 30.6 pg (28.0-32.0); Mean Corpuscular Hgb Conc. 35.8 g/dL (32.0-36.0); Mean Corpuscular Volume 85.5 fL (80.0-100.0); Monocytes # (auto) 0.5 10 ^3/uL (0-1.3); Monocytes % (auto) 9.2 % (0.0-12.0); Neutrophils # (auto) 3.2 10 ^3/uL (1.6-8.6); Neutrophils % (auto) 55.7 % (37.0-80.0); Nucleated Red Blood Cells % 0.1 %; Red Blood Cells 5.23 10^6/uL (4.5-5.90); Red Cell Distribution Width 14.1 % (11.8-14.3); White Blood Cell 5.8 10^3/uL (4.4-10.8)
[2021-08-11 06:30] LABS: Potassium 3.8 mmol/L (3.5-5.1)
[2021-08-11 06:41] LABS: Albumin 3.8 g/dL (3.4-5.0); BUN/Creatinine Ratio 14.6; Bilirubin, Total 0.7 mg/dL (0.2-1.0); Calcium 8.6 mg/dL (8.5-10.1); Total Protein 7.3 g/dL (6.4-8.2)
[2021-08-11 07:11] VITALS: BP 114/73
[2021-08-11 08:00] VITALS: BP 104/73
[2021-08-11] MEDS: ENOXAPARIN SOD 40 MG/0.4 ML SYRINGE SC SCH (09:06)
[2021-08-11] MEDS: FAMOTIDINE (10MG/ML) 2ML VL IV SCH (09:06)
[2021-08-11 12:00] VITALS: BP 109/70
[2021-08-11 16:00] VITALS: BP 103/67
[2021-08-11 20:00] VITALS: BP 107/63
[2021-08-11] MEDS: INSULIN LANTUS (GLARGINE) 1 /0.01ml (100units/ml) SC SCH (21:56)
[2021-08-11 22:45] VITALS: BP 107/63
[2021-08-12] MEDS: InsuLIN REG 1unit/0.01ml Soln (100units/ml) SC SCH ×7 (00:09→21:22)
[2021-08-12] MEDS: SODIUM CHLORIDE 0.9% 1,000 ML IV SCH (03:22)
[2021-08-12] MEDS: ACCU-CHEK COMFORT CURVE STRIP VI SCH ×5 (03:41→16:30)
[2021-08-12 05:12] VITALS: BP 112/63
[2021-08-12 05:56] LABS: Basophils # (auto) 0 10 ^3/uL (0-0.2); Basophils % (auto) 0.4 % (0.0-2.0); Eosinophils # (auto) 0.1 10 ^3/uL (0-0.8); Eosinophils % (auto) 2.6 % (0.0-7.0); Hematocrit 42.6 % (41.0-53.0); Hemoglobin 15.2 g/dL (13.5-17.5); Lymphocytes # (auto) 1.8 10 ^3/uL (0.4-5.4); Lymphocytes % (auto) 33.1 % (10.0-50.0); Mean Corpuscular Hemoglobin 30.2 pg (28.0-32.0); Mean Corpuscular Hgb Conc. 35.6 g/dL (32.0-36.0); Mean Corpuscular Volume 84.8 fL (80.0-100.0); Monocytes # (auto) 0.5 10 ^3/uL (0-1.3); Monocytes % (auto) 9.2 % (0.0-12.0); Neutrophils # (auto) 2.9 10 ^3/uL (1.6-8.6); Neutrophils % (auto) 54.7 % (37.0-80.0); Nucleated Red Blood Cells % 0.2 %; Red Blood Cells 5.02 10^6/uL (4.5-5.90); White Blood Cell 5.3 10^3/uL (4.4-10.8)
[2021-08-12] MEDS: INSULIN LANTUS (GLARGINE) 1 /0.01ml (100units/ml) SC SCH ×2 (06:35→21:23)
[2021-08-12 06:45] LABS: Albumin 3.1 g/dL (3.4-5.0); BUN/Creatinine Ratio 12.4; Calcium 8.1 mg/dL (8.5-10.1); Potassium 3.4 mmol/L (3.5-5.1)
[2021-08-12 06:47] LABS: Bilirubin, Total 0.6 mg/dL (0.2-1.0); Total Protein 6.2 g/dL (6.4-8.2)
[2021-08-12 08:00] VITALS: BP 109/76
[2021-08-12] MEDS: FAMOTIDINE (10MG/ML) 2ML VL IV SCH (09:07)
[2021-08-12] MEDS: ENOXAPARIN SOD 40 MG/0.4 ML SYRINGE SC SCH (09:07)
[2021-08-12] MEDS ORDERED: ADENOSINE 77 MG in GIVE UN-DILUTED 0 ML IV STA (11:17)
[2021-08-12 12:00] VITALS: BP 102/68
[2021-08-12 13:42] VITALS: BP 100/71
[2021-08-12] MEDS ORDERED: ASPirin-EC 81 mg tab PO ONE (15:45)
[2021-08-12 16:00] VITALS: BP 99/70
[2021-08-12 16:13] LABS: Cholesterol 154 mg/dL (< 200)
[2021-08-12 16:16] LABS: HDL Cholesterol 27 mg/dL (40-59); LDL Cholesterol 101 mg/dL (< 100); Triglycerides 237 mg/dL (< 150)
[2021-08-12 17:04] LABS: Urine Bacteria FEW /hpf (None Seen); Urine Blood Negative /uL (Negative); Urine Mucus FEW (None Seen); Urine Specific Gravity 1.021 (1.001-1.035); Urine WBC 1 /hpf (0 - 3)
[2021-08-12] MEDS: ATORVASTATIN 20 MG TAB PO SCH (21:24)
[2021-08-12 22:00] VITALS: BP 104/69
[2021-08-13] MEDS: ACCU-CHEK COMFORT CURVE STRIP VI SCH ×6 (00:10→19:59)
[2021-08-13] MEDS: InsuLIN REG 1unit/0.01ml Soln (100units/ml) SC SCH ×6 (00:10→19:51)
[2021-08-13 05:00] VITALS: BP 108/65
[2021-08-13] MEDS: INSULIN LANTUS (GLARGINE) 1 /0.01ml (100units/ml) SC SCH ×2 (06:32→21:52)
[2021-08-13 08:00] VITALS: BP 110/67
[2021-08-13 09:00] VITALS: BP 110/67
[2021-08-13] MEDS: ENOXAPARIN SOD 40 MG/0.4 ML SYRINGE SC SCH (10:41)
[2021-08-13] MEDS: ASPirin-EC 81 mg tab PO SCH (10:41)
[2021-08-13] MEDS ORDERED: ERGOCALCIFEROL 50,000 UNIT(1.25MG) CAP PO SCH (12:00)
[2021-08-13 12:30] VITALS: BP 112/79
[2021-08-13 13:00] VITALS: BP 112/79
[2021-08-13 17:00] VITALS: BP 109/72
[2021-08-13] MEDS ORDERED: METF-370 PO (17:22)
[2021-08-13] MEDS ORDERED: ATOR20TA PO (17:25)
[2021-08-13] MEDS: ATORVASTATIN 20 MG TAB PO SCH (21:53)
[2021-08-14] MEDS: ACCU-CHEK COMFORT CURVE STRIP VI SCH ×6 (00:16→20:47)
[2021-08-14] MEDS: InsuLIN REG 1unit/0.01ml Soln (100units/ml) SC SCH ×6 (04:17→20:48)
[2021-08-14 05:00] VITALS: BP 117/70
[2021-08-14 06:37] LABS: INR 1.01 (0.9-1.15); Partial Thromboplastin Time 26.3 sec (23.6-33.0)
[2021-08-14 06:40] LABS: Basophils # (auto) 0 10 ^3/uL (0-0.2); Basophils % (auto) 0.4 % (0.0-2.0); Eosinophils # (auto) 0.2 10 ^3/uL (0-0.8); Eosinophils % (auto) 2.9 % (0.0-7.0); Hemoglobin 15.9 g/dL (13.5-17.5); Lymphocytes % (auto) 35.8 % (10.0-50.0); Mean Corpuscular Hemoglobin 30.6 pg (28.0-32.0); Mean Corpuscular Hgb Conc. 35.4 g/dL (32.0-36.0); Mean Corpuscular Volume 86.5 fL (80.0-100.0); Monocytes # (auto) 0.5 10 ^3/uL (0-1.3); Monocytes % (auto) 9.2 % (0.0-12.0); Neutrophils % (auto) 51.7 % (37.0-80.0); Nucleated Red Blood Cells % 0.3 %; Red Blood Cells 5.21 10^6/uL (4.5-5.90); Red Cell Distribution Width 14.4 % (11.8-14.3); White Blood Cell 5.7 10^3/uL (4.4-10.8)
[2021-08-14] MEDS: INSULIN LANTUS (GLARGINE) 1 /0.01ml (100units/ml) SC SCH ×2 (07:00→21:57)
[2021-08-14 07:07] LABS: BUN/Creatinine Ratio 12.4; Calcium 8.6 mg/dL (8.5-10.1); Potassium 3.4 mmol/L (3.5-5.1)
[2021-08-14 09:00] VITALS: BP 111/61
[2021-08-14] MEDS ORDERED: POTASSIUM CHL 20 Meq TABLET PO ONE (09:15)
[2021-08-14] MEDS: ASPirin-EC 81 mg tab PO SCH (11:07)
[2021-08-14] MEDS: ENOXAPARIN SOD 40 MG/0.4 ML SYRINGE SC SCH (11:07)
[2021-08-14 12:53] VITALS: BP 111/68
[2021-08-14 17:02] VITALS: BP 102/66
[2021-08-14] MEDS: ATORVASTATIN 20 MG TAB PO SCH (21:54)
[2021-08-14 22:00] VITALS: BP 110/65
[2021-08-15] MEDS: InsuLIN REG 1unit/0.01ml Soln (100units/ml) SC SCH ×5 (00:22→17:00)
[2021-08-15] MEDS: ACCU-CHEK COMFORT CURVE STRIP VI SCH ×5 (00:50→17:00)
[2021-08-15 05:00] VITALS: BP 114/70
[2021-08-15] MEDS: INSULIN LANTUS (GLARGINE) 1 /0.01ml (100units/ml) SC SCH (06:45)
[2021-08-15 09:02] VITALS: BP 112/68
[2021-08-15] MEDS: ENOXAPARIN SOD 40 MG/0.4 ML SYRINGE SC SCH (09:12)
[2021-08-15] MEDS: ASPirin-EC 81 mg tab PO SCH (09:12)
[2021-08-15 13:00] VITALS: BP 103/67
[2021-08-15 14:22] VITALS: BP 103/67
== END 2021-08-15 17:45 | disposition home or self-care (01) | DRG 420 ==
LOC: ER 21:32 → OVERFLOW 08-11 03:59 → WEST WING 08-11 06:30 → TELE-WESTW 08-12 08:58
PROVIDERS: ADMIT Nurse Practitioner Family; ATTEND Internal Medicine
DX: E11.10 Type 2 diabetes mellitus with ketoacidosis without coma (principal); E66.9 Obesity, unspecified; R07.9 Chest pain, unspecified; E87.6 Hypokalemia; E78.1 Pure hyperglyceridemia; Z20.822 Contact with and (suspected) exposure to COVID-19; Z79.84 Long term (current) use of oral hypoglycemic drugs; Z68.33 Body mass index [BMI] 33.0-33.9, adult
CPT/HCPCS: 36415; 71046; 78452; 80048; 80053; 80061; 81001; 82010; 82043; 82306; 82962; 83036; 84443; 85025; 85610; 85730; 86850; 86900; 86901; 87426; 93005; 93017; 93306; 96361; 96372; 96374; G0378; J0153; J1815; J3490

== ENCOUNTER 2025-04-19 20:33 | Emergency (ER) | payer MEDICAID ==
[~2025-04-19] VITALS: Ht 162.6 cm; Wt 49.6 kg
[~2025-04-19 20:33] MED LIST: ATOR20TA PO; METF-370 PO
--- NOTE | 2025-04-19 22:16 | ED.PDOC ---
History of present illness HPI Comments 54y M who presents to the ED for chief complaint of hyperglycemia. PPt over the past few days, has been having associated generalized malaise with associated neuropathy to feet and hands with associated vision problems. Pt daughter states earlier this AM, pt checked his Accu check this AM with noted blood g lucose of 254 at home. Pt later this afternoon, had lunch and checked blood glucose again and it was noted 329. Pt daughter notes pt having increasing weakness and was brought to the ED for further evaluation. Pt presents with daughter who states pt has history of DM and is otherwise complaint with his metformin. Pt has noted Accu check of 273 with noted otherwise stable vitals. Pt otherwise denies any other symptoms at this time. Chief Complaint: Hyperglycemia Time Seen by MD: 22:12 Primary Care Provider: ABIMAEL History of present illness: Medications, Allergies Allergies: Coded Allergies: NO KNOWN ALLERGIES (Unverified , 09/24/20) Home Meds Reported Medications Atorvastatin Calcium (Lipitor) 20 Mg Tab, 1 TAB PO DAILY, #90 TAB 1 Refill 08/13/21 Metformin Hydrochloride (Metformin Hcl) 500 Mg Tab, 500 MG PO IBID for 30 Days, MG 08/13/21 Information Source: Patient, Relative Mode of Arrival: Ambulatory Brought in by: daughter Timing: Hours Duration: Since onset Prehospital treatment: None Past Medical History PAST MEDICAL HISTORY: DM Surgical History: Denies all surgeries Family History Family History: No family hx of Cancer, No family hx of DM, No family hx of Heart kar Social History Smoker: Non-Smoker Alcohol: Denies ETOH Use Drugs: Denies Drug Use Lives In: Home Constitutional: reports: malaise, weakness; denies: chills, diaphoresis, fatigue, fever, sweats, others EENTM: denies: blurred vision, double vision, ear bleeding, ear discharge, ear drainage, ear pain, ear ringing, eye pain, eye redness, hearing loss, mouth pain, mouth swelling, nasal discharge, nose bleeding, nose congestion, nose pain, photophobia, tearing, throat pain, throat swelling, voice changes, others Respiratory: denies: cough, hemoptysis, orthopnea, SOB at rest, shortness of breath, SOB with excertion, stridor, wheezing, others Cardiovascular: denies: chest pain, dizzy spells, diaphoresis, Dyspnea on exertion, edema, irregular heart beat, left arm pain, lightheadedness, palpitations, PND, syncope, others Gastrointestinal: denies: abdomen distended, abdominal pain, blood streaked bowels, constipated, diarrhea, dysphagia, difficulty swallowing, hematemesis, melena, nausea, poor appetite, poor fluid intake, rectal bleeding, rectal pain, vomiting, others Genitourinary: denies: burning, dysuria, flank pain, frequency, hematuria, incontinence, penile discharge, penile sore, pain, testicle pain, testicle sw elling, urgency, others Neurological: denies: dizziness, fainting, headache, left sided numbness, left sided weakness, numbness, paresthesia, pre-existing deficit, right sided numbness, right sided weakness, seizure, speech problems, tingling, tremors, weakness, others Musculoskeletal: denies: back pain, gout, joint pain, joint swelling, muscle pain, muscle stiffness, neck pain, others Integumetry: denies: bruises, change in color, change in hair/nails, dryness, laceration, lesions, lumps, rash, wounds, others Allergic/Immunocompromised: denies: Difficulty Healing, Frequent Infections, Hives, Itching, others Hematologic/Lymphatic: denies: anemia, blood clots, easy bleeding, easy bruising, swollen glands, others Endocrine: reports: others (neuropathy); denies: excessive hunger, excessive sweating, excessive thirst, excessive urination, flushing, intolerance to cold, intolerance to heat, unexplained weight gain, unexplained weight loss Psychiatric: denies: anxiety, bipolar disorder, depression, hopeless, panic disorder, schizophrenia, sleepless, suicidal, others All Other Systems: Reviewed and Negative Physical Exam General Appearance: No Apparent Distress, Normal HEENT: Normal ENT Inspection, Pharynx Normal, TMs Normal Neck: Full Range of Motion, Non-Tender, Normal, Normal Inspection Respiratory: Chest Non-Tender, Lungs Clear, No Accessory Muscle Use, No Respiratory Distress, Normal Breath Sounds Cardiovascular: No Edema, No JVD, No Murmur, No Gallop, Normal Peripheral Pulses, Regular Rate/Rhythm Breast Exam: Deferred Gastrointestinal: No Organomegaly, Non Tender, No Pulsatile Mass, Normal Bowel Sounds, Soft Genitalia: Deferred Pelvic: Deferred Rectal: Deferred Extremities: No calf tenderness, Normal capillary refill, Normal inspection, Normal range of motion, Non-tender, No pedal edema Musculoskeletal : Apperance: Normal Neurologic: Alert, assistant project manager II-XII nml as Tested, No Motor Deficits, Normal Affect, Normal Mood, No Sensory Deficits Cerebellar Function: Normal Reflexes: Normal Skin: Dry, Normal Color, Warm Lymphatic: No Adenopathy Was a procedure done? Was a procedure done?: No Differential Diagnosis (DM) Differential Diagnosis: Dehydration, DKA, Electrolyte Abnormality, Encephalopathy, Gastroenteritis, Hyperglycemia, Hyperosmolar State X-Ray, Labs, Meds, VS Vital Signs Date Time Temp Pulse Resp B/P (MAP) Pulse Ox O2 Delivery O2 Flow Rate FiO2 04/19/25 20:33 98.6 101 16 103/76 (85) 98 98.6 Lab Test 04/19/25 22:15 04/19/25 22:00 04/19/25 20:49 Range/Units White Blood Count 5.2 4.4-10.8 10^3/uL Red Blood Count 5.03 4.5-5.90 10^6/uL Hemoglobin 15.6 13.5-17.5 g/dL Hematocrit 44.7 41.0-53.0 % Mean Corpuscular Volume 88.8 80.0-100.0 fL Mean Corpuscular Hemoglobin 31.1 28.0-32.0 pg Mean Corpuscular Hemoglobin Concent 35.0 32.0-36.0 g/dL Red Cell Distribution Width 13.7 11.8-14.3 % Platelet Count 233 140-450 10^3/uL Mean Platelet Volume 8.6 6.9-10.8 fL Neutrophils (%) (Auto) 47.7 37.0-80.0 % Lymphocytes (%) (Auto) 40.6 10.0-50.0 % Monocytes (%) (Auto) 9.8 0.0-12.0 % Eosinophils (%) (Auto) 1.2 0.0-7.0 % Basophils (%) (Auto) 0.7 0.0-2.0 % Neutrophils # (Auto) 2.5 1.6-8.6 10 ^3/uL Lymphocytes # (Auto) 2.1 0.4-5.4 10 ^3/uL Monocytes # (Auto) 0.5 0-1.3 10 ^3/uL Eosinophils # (Auto) 0.1 0-0.8 10 ^3/uL Basophils # (Auto) 0 0-0.2 10 ^3/uL Nucleated Red Blood Cells 0.4 % Sodium Level 137 136-145 mmol/L Potassium Level 4.2 3.5-5.1 mmol/L Chloride Level 101 98-107 mmol/L Carbon Dioxide Level 28 20-31 mmol/L Anion Gap 8 5-15 Blood Urea Nitrogen 18 9-23 mg/dL Creatinine 0.82 0.700-1.30 mg/dL Glomerular Filtration Rate Calc 106 >90 mL/min BUN/Creatinine Ratio 22.0 H 10.0-20.0 Serum Glucose 285 H 74-106 mg/dL Calcium Level 10.3 8.7-10.4 mg/dL Total Bilirubin 0.9 0.2-1.0 mg/dL Aspartate Amino Transferase (AST) 10 L 13-40 U/L Alanine Aminotransferase (ALT) 17 7-40 U/L Alkaline Phosphatase 67 46-116 U/L Total Protein 7.1 5.7-8.2 g/dL Albumin 4.7 3.2-4.8 g/dL Urine Color Yellow Yellow Urine Clarity Clear Clear Urine pH 6.5 5.0-9.0 Urine Specific [place] 1.046 H 1.001-1.035 Urine Protein Trace H Negative Urine Ketones Trace Negative Urine Blood Negative Negative /uL Urine Nitrite Negative Negative Urine Bilirubin Negative Negative Urine Urobilinogen Normal Negative mg/dL Urine Leukocyte Esterase Negative Negative /uL Urine RBC 5 0 - 3 /hpf Urine Microscopic WBC 1 0-3 /HPF Urine Squamous Epithelial Cells Few <5 /hpf Urine Calcium Oxalate Crystals Few None Seen Urine Bacteria None seen None Seen /hpf Urine Glucose 4+ H Normal mg/dL POC Glucose 273 H 70-106 mg/dl X-Ray, Labs, Meds, VS Comment Imaging: X-rays and CT scans were reviewed and interpreted by this provider, imaging shows no fractures and no pathological disease. Pending radiology review. Laboratory: Labs reviewed and interpreted by this provider. No significant abnormalities noted. Patient has prior medical visits reviewed. Med reconciliation performed Vital signs reviewed Time of 1ST Reevaluation: 22:40 Reevaluation 1ST: Unchanged Patient Education/Counseling: Diagnosis, Treatment, Need For Follow Up (Follow up with the PCP as planned next week Thursday.) Family Education/Counseling: Diagnosis, Treatment SEPSIS Sepsis Screen Date sepsis recognized/suspect: Apr 19, 2025 Time Sepsis recognized/suspect: 2032 Recent Procedure: No On Antibiotic Therapy: No Respiratory Rate >20: No Heart Rate >90: No Temp<36 C (96.8 F) or >38.3 C: No SBP <90 or MAP <65 mmHG: No New Acute Mental Status Change: No Is the patient on CPAP, BIPAP,: No Vital Signs Date Time Temp Pulse Resp B/P (MAP) Pulse Ox O2 Delivery O2 Flow Rate FiO2 04/19/25 20:33 98.6 101 16 103/76 (85) 98 98.6 Laboratory Tests Test 04/19/25 22:15 White Blood Count 5.2 10^3/uL (4.4-10.8) Departure 1 Departure Time of Disposition: 23:18 Impression: Primary Impression: Hyperglycemia due to diabetes mellitus Disposition: HOME / SELF CARE / HOMELESS Condition: Fair e-Prescriptions Glipizide (Glipizide) 5 Mg Tab 1 TAB PO DAILY, #30 TAB 3 Refills Prov: OSBALDO CONTRERAS 04/19/25 Discharged With: Self Critical Care Note Critical Care Time?: No Stability Stability form required: No Heart Score Heart Score: Heart Score Response (Comments) Value History N/A 0 EKG N/A 0 Age N/A 0 Risk Factors N/A 0 Troponin N/A 0 Total 0 I personally scribed for OSBALDO CONTRERAS ([email or web address]) on 04/19/25 at 22:16. Electronically submitted by Parris POMPA). OSBALDO CONTRERAS Apr 19, 2025 22:16
[2025-04-19 22:39] LABS: Hematocrit 44.7 % (41.0-53.0); Hemoglobin 15.6 g/dL (13.5-17.5); Mean Corpuscular Hemoglobin 31.1 pg (28.0-32.0); Mean Corpuscular Volume 88.8 fL (80.0-100.0); Nucleated Red Blood Cells % 0.4 %
[2025-04-19 22:44] LABS: Urine Protein, UAD TRACE (Negative)
[2025-04-19 22:58] LABS: Alanine Aminotransferase 17 U/L (7-40); Albumin 4.7 g/dL (3.2-4.8); Alkaline Phosphatase 67 U/L (46-116); Anion Gap 8 (5-15); BUN/Creatinine Ratio 22.0 (10.0-20.0); Bilirubin, Total 0.9 mg/dL (0.2-1.0); Blood Urea Nitrogen 18 mg/dL (9-23); Calcium 10.3 mg/dL (8.7-10.4); Carbon Dioxide 28 mmol/L (20-31); Chloride 101 mmol/L (98-107); Potassium 4.2 mmol/L (3.5-5.1); Sodium 137 mmol/L (136-145); Total Protein 7.1 g/dL (5.7-8.2)
[2025-04-19 23:07] LABS: Glucose 285 mg/dL (74-106)
[2025-04-19] MEDS ORDERED: GLIP5TAB21 PO (23:19)
[2025-04-19 23:56] VITALS: BP 107/79; TEMP 98.4
[2025-04-20] MEDS: KETOROLAC TROMETH 30 MG/ML 1ML VIAL IM ONE (01:51)
[2025-04-20 01:52] VITALS: PULSE 97; RESP 18; O2SAT 97
== END 2025-04-20 01:53 | disposition home or self-care (01) ==
LOC: ER 20:33
DX: E11.65 Type 2 diabetes mellitus with hyperglycemia (principal); Z79.899 Other long term (current) drug therapy
CPT/HCPCS: 36415; 80053; 81001; 82947; 85025; 96372; 99283; J1885; 82962